=== PATIENT | male | born 1990 | race Caucasian/White ===

== ENCOUNTER 2018-07-21 20:58 | Emergency (ER) | payer OTHER ==
[~2018-07-21] VITALS: Ht 182.9 cm; Wt 81.6 kg
[2018-07-21 21:32] VITALS: Ht 182.9 cm; Wt 81.6 kg
[2018-07-21 21:58] VITALS: BP 123/93
== END 2018-07-21 21:58 | disposition other institution (70) ==
LOC: ED 20:58
DX: Z02.89 Encounter for other administrative examinations (principal)